=== PATIENT | male | born 1985 | race Caucasian/White ===

== ENCOUNTER 2016-08-10 13:24 | Emergency (ER) | payer BC ==
[2016-08-10 13:31] VITALS: BP 150/86; PULSE 81; RESP 18; TEMP 97.6
[2016-08-10] MEDS ORDERED: DIPH,PERTUS(ACELL)TETVAC-LF 0.5 ML VIAL IM ONE (13:51)
--- NOTE | 2016-08-10 13:55 | ED ---
Wound/Laceration HPI - General Chief Complaint: Wound/Laceration Stated Complaint: Lac/Hand Time Seen by Provider: 08/10/16 13:32 Source: patient, RN notes reviewed Mode of arrival: ambulatory Limitations: no limitations - History of Present Illness Initial Comments: 31 yo male presents to the ER with cc of right hand laceration. Patient states he cut with a piece of drywall today. Patient states he has no changes in mentation. Patient states he is now decreased range of motion. Patient states there is no pain. Patient states he is concerned because it seemed to be deeply without that he should be evaluated. Patient denies any other symptoms at this time. Patient denies any recent fever, chills, shortness of breath, chest pain, back pain, abdominal pain, nausea vomiting, numbness or tingling, dysuria or hematuria, constipation or diarrhea, headaches or visual changes, or any other current symptoms. - Related Data Allergies Allergy/AdvReac Type Severity Reaction Status Date / Time No Known Allergies Allergy Verified 08/10/16 13:29 Review of Systems ROS Statement: Those systems with pertinent positive or pertinent negative responses have been documented in the HPI. ROS Other: All systems not noted in ROS Statement are negative. Past Medical History Past Medical History: No Reported History History of Any Multi-Drug Resistant Organisms: None Reported Past Surgical History: No Surgical Hx Reported Past Psychological History: No Psychological Hx Reported Smoking Status: Never smoker Past Alcohol Use History: Occasional Past Drug Use History: None Reported General Exam - General Exam Comments Initial Comments: General: The patient is awake and alert, in no distress, and does not appear acutely ill. Neck: The neck is supple, there is no tenderness. Cardiovascular: There is a regular rate and rhythm. No murmur, rub or gallop is appreciated. Respiratory: Lungs are clear to auscultation, respirations are non-labored, breath sounds are equal. No wheezes, stridor, rales, or rhonchi. Musculoskeletal: Sensation intact with 2+ pulses of the upper extremity. Full range of motion motion of right hand. 5 out of 5 muscle strength testing throughout. 2 cm laceration to the palm of the right hand Neurological: CN II-XII intact, There are no obvious motor or sensory deficits. Coordination appears grossly intact. Speech is normal. Skin: Skin is warm and dry and no rashes or lesions are noted. Psychiatric: Normal mood and affect. Limitations: no limitations Course Vital Signs 08/10/16 13:29 Temperature 97.6 F Pulse Rate 81 Respiratory 18 Rate Blood Pressure 150/86 O2 Sat by Pulse 99 Oximetry Procedures - Procedures Initial comment: The skin was anesthetized with 1% lidocaine. The laceration was then cleansed with Betadine and irrigated with normal saline. The wound was inspected, and there was no evidence of injury to deep structures. No foreign body was noted in the wound. A total of 3 skin sutures were placed utilizing 5-0 nylon to a 2 similar laceration of the right hand. Medical Decision Making - Medical Decision Making 31-year-old male presents emergency Department chief complaint of right hand laceration. This and we did update the patient's tetanus. We did do suture care we discussed removal follow-up and all questions. They stated they understood and they are in agreement with plan. This time they will be discharged home. Patient was offered an x-ray of the hand to rule out foreign body patient states he is up with assistance today he does not want this done. Disposition Clinical Impression: Laceration of right hand Disposition: HOME SELF-CARE Condition: Stable Instructions: Laceration (ED), Care For Your Stitches (ED) Additional Instructions: Please use medication as discussed. Please follow up with family doctor if symptoms have not improved over the next two days. Please return to the emergency room if your symptoms increase or worsen or for any other concerns. `Please return to the emergency room in 8-10 days to have sutures removed. Please leave wound covered for the first 24-48 hours and then leave open to air after that time. Please use clean soap and water to clean the suture area to prevent scabbing over the top of your sutures. Please watch for any signs of infection which may include but not limited to increased pain, swelling, redness , fever or chills. Please return to the emergency room if any signs of infection do occur. Please return to the emergency room for any other concerns or complications. Referrals: Quiana Mcdonnell MD [STAFF PHYSICIAN] - 1-2 days Time of Disposition: 13:55
== END 2016-08-10 14:11 | disposition home or self-care (01) ==
LOC: EC 13:24
DX: S61.411A Laceration without foreign body of right hand, initial encounter (principal); Z23 Encounter for immunization; W45.8XXA Other foreign body or object entering through skin, initial encounter
CPT/HCPCS: 12001; 90471; 90715; 99282

== ENCOUNTER → 2021-06-19 | Outpatient (CLI) | payer BC | END | disposition home or self-care (01) | LOC: LABWHC1 11:28 | PROVIDERS: ATTEND Obstetrics & Gynecology | DX: Z31.441 Encounter for testing of male partner of patient with recurrent pregnancy loss (principal) | CPT/HCPCS: 36415 ==

== ENCOUNTER 2022-09-03 05:35 | Emergency (ER) | payer BC ==
[2022-09-03] MEDS ORDERED: SODIUM CHLORIDE 0.9% 1,000 ML IV STA (06:00)
[2022-09-03] MEDS ORDERED: KETOROLAC 15 MG/ML 1 ML VIAL IVP STA (06:00)
--- NOTE | 2022-09-03 06:05 | ED ---
Back Pain HPI - General Chief Complaint: Back Pain/Injury Stated Complaint: Pain in low right side of back Time Seen by Provider: 09/03/22 05:55 Source: patient, RN notes reviewed Limitations: no limitations - History of Present Illness Initial Comments: Patient is a 37-year-old male presenting to the emergency room with complaints of right flank pain radiating into the lower right abdomen. He reports having ongoing lower back pain for approximately 1-2 weeks with wo rsening on the right side than the left which she was attributing to muscle pain from work however during the night last night he had severe right flank pain that woke him. The pain was so severe it caused nausea and vomiting. At the peak of the pain he rated at an 8 out of 10 without intervention the pain has decreased to a 3 out of 10 with no nausea at this time. He denies any injury or trauma. He denies any weakness or radiculopathy. He denies any saddle paresthesia, bowel or bladder incontinence, other red flag symptoms for cauda equina, dysuria, hematuria, urinary frequency or hesitancy. He denies any abdominal pain not directly related to radiation from the right flank, fevers or chills. He has no significant past medical history and denies any regular medication usage or family history of nephrolithiasis. - Related Data Allergies Allergy/AdvReac Type Severity Reaction Status Date / Time No Known Allergies Allergy Verified 09/03/22 05:49 Review of Systems ROS Statement: Those systems with pertinent positive or pertinent negative responses have been documented in the HPI. ROS Other: All systems not noted in ROS Statement are negative. Past Medical History Past Medical History: No Reported History History of Any Multi-Drug Resistant Organisms: None Reported Past Surgical History: No Surgical Hx Reported Past Psychological History: No Psychological Hx Reported Smoking Status: Never smoker Past Alcohol Use History: Occasional Past Drug Use History: None Reported General Exam Limitations: no limitations General appearance: alert, in no apparent distress Head exam: Present: atraumatic, normocephalic, normal inspection Eye exam: Present: normal appearance, PERRL, EOMI. Absent: scleral icterus, conjunctival injection, periorbital swelling ENT exam: Present: normal exam, mucous membranes moist Neck exam: Present: normal inspection, full ROM Respiratory exam: Present: normal lung sounds bilaterally. Absent: respiratory distress, wheezes, rales, rhonchi, stridor Cardiovascular Exam: Present: regular rate, normal rhythm, normal heart sounds. Absent: systolic murmur, diastolic murmur, rubs, gallop, clicks GI/Abdominal exam: Present: soft, normal bowel sounds. Absent: distended, tenderness, guarding, rebound, rigid Rectal exam: Present: deferred Extremities exam: Present: normal inspection, full ROM. Absent: pedal edema, joint swelling Back exam: Present: normal inspection, full ROM. Absent: tenderness, CVA tenderness (R), CVA tenderness (L), muscle spasm, paraspinal tenderness, vertebral tenderness Neurological exam: Present: alert, oriented X3, CN II-XII intact Psychiatric exam: Present: normal affect, normal mood Skin exam: Present: warm, dry, intact, normal color. Absent: rash Course Vital Signs 09/03/22 09/03/22 05:46 07:17 Temperature 97.3 F L 98.1 F Pulse Rate 63 63 Respiratory 18 16 Rate Blood Pressure 126/84 141/92 O2 Sat by Pulse 96 100 Oximetry Medical Decision Making - Medical Decision Making Was pt. sent in by a medical professional or institution (, PA, COMMUNICATIONS WRITER, urgent care, hospital, or long-term...) When possible be specific @ -No Did you speak to anyone other than the patient for history (EMS, parent, family, police, friend...)? What history was obtained from this source @ -No Did you review nursing and triage notes (agree or disagree)? Why? @ -I reviewed and agree with nursing and triage notes Were old charts reviewed (outside hosp., previous admission, EMS record, old EKG, old radiological studies, urgent care reports/EKG's, long-term records)? Report findings @ -No old charts were reviewed Differential Diagnosis (chest pain, altered mental status, abdominal pain women, abdominal pain men, vaginal bleeding, weakness, fever, dyspnea, syncope, headache, dizziness, GI bleed, back pain, seizure, CVA, palpatations, mental health, musculoskeletal)? @ -Differential Back Pain: Strain, zoster, cauda equina syndrome, epidural abscess, vertebral osteomyelitis, discitis, fracture, subluxation, disc herniation, DJD, spinal stenosis, dissection, AAA, pancreatitis, peptic ulcer disease, pyelonephritis, kidney stone, this is not meant to be an all-inclusive list. EKG interpreted by me (3pts min.). @ -None done X-rays interpreted by me (1pt min.). @ -None done CT interpreted by me (1pt min.). @ -CT thoracic spine: Vertebral space well maintained no evidence of fracture or subluxation. Right renal calculi noted without any evidence of hydronephrosis. Her radiologist calculi measures 2 mm. U/S interpreted by me (1pt. min.). @ -None done What testing was considered but not performed or refused? (CT, X-rays, U/S, labs)? Why? @ -None What meds were considered but not given or refused? Why? @ -None Did you discuss the management of the patient with other professionals (professionals i.e. , PA, COMMUNICATIONS WRITER, lab, RT, psych nurse, transition social worker, oyster washer, teacher, chief quality officer, leather case finisher)? Give summary @ -No Was smoking cessation discussed for >3mins.? @ -No Was critical care preformed (if so, how long)? @ -No Were there social determinants of health that impacted care today? How? (Homelessness, low income, unemployed, alcoholism, drug addiction, tr ansportation, low edu. Level, literacy, decrease access to med. care, nursing home, rehab)? @ -No Was there de-escalation of care discussed even if they declined (Discuss DNR or withdrawal of care, Hospice)? DNR status @ -No What co-morbidities impacted this encounter? (DM, HTN, Smoking, COPD, CAD, Cancer, CVA, ARF, Chemo, Hep., AIDS, mental health diagnosis, sleep apnea, morbid obesity)? @ -None Was patient admitted / discharged? Hospital course, mention meds given and route, prescriptions, significant lab abnormalities, going to OR and other pertinent info. @ -37-year-old male presents to the emergency room complaints of back pain ongoing 12 weeks with change in pain characteristics localizing pain to right flank region radiating into the abdomen with associated nausea and vomiting this morning due to severe pain which has improved without intervention but persist. Will begin workup for flank pain with CBC, CMP, urinalysis along with CAT scan; will give 1 L IV fluids of normal saline along with Toradol IV push for pain and inflammation. Pain resolved with IV hydration and Toradol. CBC without abnormalities. CMP shows elevated glucose 107 no abnormal electrolytes renal and liver function normal. Computed tomography scan shows a nonobstructing 2 mm right renal calculi consistent with his flank pain. Pain resolved with Toradol no indication for further workup at this time. Education regarding kidney stones given and advised anti-inflammatory such as Motrin as needed for pain. Questions and concerns answered. Return parameters to the emergency room discussed. Will discharge home in stable condition on [id number] anti-inflammatories to treat right flank pain and monitor symptoms of nephrolithiasis advising follow-up with primary care provider. Undiagnosed new problem with uncertain prognosis? @ -No Drug Therapy requiring intensive monitoring for toxicity (Heparin, Nitro, Insulin, Cardizem)? @ -No Were any procedures done? @ -No Diagnosis/symptom? @ -Nonobstructing right renal calculi Acute, or Chronic, or Acute on Chronic? @ -Acute Uncomplicated (without systemic symptoms) or Complicated (systemic symptoms)? @ -Uncomplicated Side effects of treatment? @ -No Exacerbation, Progression, or Severe Exacerbation? @ -No Poses a threat to life or bodily function? How? (Chest pain, USA, MD, pneumonia, PE, COPD, DKA, ARF, appy, cholecystitis, CVA, Diverticulitis, Homicidal, Suicidal, threat to staff... and all critical care pts) @ -No Diagnosis/symptom? @ -Right flank Acute, or Chronic, or Acute on Chronic? @ -Acute Uncomplicated (without systemic symptoms) or Complicated (systemic symptoms)? @ -Uncomplicated Side effects of treatment? @ -none Exacerbation, Progression, or Severe Exacerbation] @ -no Poses a threat to life or bodily function? @ -no Case discussed with Dr. Gomez. - Lab Data Result diagrams: 09/03/22 06:36 09/03/22 06:36 Lab Results 09/03/22 09/03/22 Range/Units 06:36 06:36 WBC 7.5 (3.8-10.6) k/uL RBC 5.11 (4.30-5.90) m/uL Hgb 14.6 (13.0-17.5) gm/dL Hct 44.1 (39.0-53.0) % MCV 86.4 (80.0-100.0) fL MCH 28.6 (25.0-35.0) pg MCHC 33.1 (31.0-37.0) g/dL RDW 13.1 (11.5-15.5) % Plt Count 233 (150-450) k/uL MPV 9.3 Neutrophils % 67 % Lymphocytes % 23 % Monocytes % 6 % Eosinophils % 3 % Basophils % 0 % Neutrophils # 5.0 (1.3-7.7) k/uL Lymphocytes # 1.7 (1.0-4.8) k/uL Monocytes # 0.5 (0-1.0) k/uL Eosinophils # 0.2 (0-0.7) k/uL Basophils # 0.0 (0-0.2) k/uL Sodium 138 (137-145) mmol/L Potassium 4.1 (3.5-5.1) mmol/L Chloride 105 (98-107) mmol/L Carbon Dioxide 28 (22-30) mmol/L Anion Gap 5 mmol/L BUN 16 (9-20) mg/dL Creatinine 0.83 (0.66-1.25) mg/dL Est GFR (CKD-EPI)AfAm >90 (>60 ml/min/1.73 sqM) Est GFR (CKD-EPI)NonAf >90 (>60 ml/min/1.73 sqM) Glucose 107 H (74-99) mg/dL Calcium 8.8 (8.4-10.2) mg/dL Total Bilirubin 0.9 (0.2-1.3) mg/dL AST 23 (17-59) U/L ALT 25 (4-49) U/L Alkaline Phosphatase 46 (38-126) U/L Total Protein 6.5 (6.3-8.2) g/dL Albumin 3.7 (3.5-5.0) g/dL - Radiology Data Radiology results: report reviewed, image reviewed Disposition Clinical Impression: Right flank pain, Right nephrolithiasis Disposition: HOME SELF-CARE Condition: Stable Instructions (If sedation given, give patient instructions): Kidney Stones (ED) Additional Instructions: Please stay well hydrated. Avoid caffeinated products including franko. Utilize [id number]-[id number] anti-inflammatory such as ibuprofen for pain as needed. Please follow-up with your primary care provider. Please return to the Emergency Department if symptoms worsen or any other concerns. Is patient prescribed a controlled substance at d/c from ED?: No Referrals: Dalia Palma MD [Primary Care Provider] - 1-2 days Time of Disposition: 08:05
[2022-09-03 07:05] LABS: ALT 25 U/L (4-49); AST 23 U/L (17-59); African American GFR (CKD) >90 (>60 ml/min/1.73 sqM); Albumin 3.7 g/dL (3.5-5.0); Alkaline Phosphatase 46 U/L (38-126); Anion Gap 5 mmol/L; Blood Urea Nitrogen 16 mg/dL (9-20); Calcium 8.8 mg/dL (8.4-10.2); Carbon Dioxide 28 mmol/L (22-30); Chloride 105 mmol/L (98-107); Glucose 107 mg/dL (74-99); Non-African American GFR(CKD) >90 (>60 ml/min/1.73 sqM); Potassium 4.1 mmol/L (3.5-5.1); Sodium 138 mmol/L (137-145); Total Bilirubin 0.9 mg/dL (0.2-1.3); Total Protein 6.5 g/dL (6.3-8.2)
[2022-09-03 07:13] LABS: Basophils % (A) 0 %; Eosinophils # (A) 0.2 k/uL (0-0.7); Eosinophils % (A) 3 %; HCT 44.1 % (39.0-53.0); HGB 14.6 gm/dL (13.0-17.5); Lymphocytes # (A) 1.7 k/uL (1.0-4.8); Lymphocytes % (A) 23 %; MCH 28.6 pg (25.0-35.0); MCHC 33.1 g/dL (31.0-37.0); MCV 86.4 fL (80.0-100.0); Mean Platelet Volume 9.3; Monocytes # (A) 0.5 k/uL (0-1.0); Monocytes % (A) 6 %; Neutrophils % (A) 67 %; Platelet Count 233 k/uL (150-450); RBC 5.11 m/uL (4.30-5.90); RDW 13.1 % (11.5-15.5); WBC 7.5 k/uL (3.8-10.6)
[2022-09-03 07:19] VITALS: RESP 16
--- NOTE | 2022-09-03 07:50 | CT ---
EXAMINATION TYPE: CT thoracic spine wo con DATE OF EXAM: 09/03/2022 COMPARISON: None HISTORY: 37-year-old male Pain in right lower side of back TECHNIQUE: Contiguous axial scanning of the thoracic spine without IV contrast. Coronal and sagittal reconstructions performed. CT DLP: 1747.2 mGycm Automated exposure control for dose reduction was used. FINDINGS: Dependent atelectasis posterior right base. No pleural effusion. Punctate 2 mm nonobstructive right renal calculus. There is gentle levoconvex curvature of the thoracolumbar spine. Vertebral body heights are preserved and alignment is maintained. Minimal anterior disc osteophyte complex at T8-T9. By CT, no obvious large focal disc herniation or canal compromise is seen. No acute fracture identified of the thoracic spine. No significant neuroforaminal stenosis is seen on either side. IMPRESSION: 1. NO VERTEBRAL COMPRESSION COLLAPSE OR MALALIGNMENT. NO ACUTE FRACTURE SEEN OF THE THORACIC SPINE. 2. 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 3. GENTLE LEVOCONVEX CURVATURE OF THE SPINE COULD BE POSITIONAL OR SECONDARY TO A SLIGHT SCOLIOSIS. 4. PUNCTATE NONOBSTRUCTIVE 2 MM RIGHT RENAL STONE.
[2022-09-03 08:26] VITALS: BP 134/76; PULSE 64; TEMP 98.2
[2022-09-03 09:27] LABS: Mucus,Urine Many /hpf; RBC,Urine 25 /hpf (0-5); Squamous Epithelial Cell,Urine <1 /hpf (0-4); WBC,Urine 3 /hpf (0-5)
[2022-09-03 09:43] LABS: Appearance,Urine Clear (Clear); Bilirubin,Urine Negative (Negative); Color,Urine Yellow; Glucose,Urine (UA) Negative (Negative); Ketones,Urine Negative (Negative); Protein,Urine Trace (Negative); Specific Gravity,Urine >1.030 (1.001-1.035)
[2022-09-03 09:44] LABS: Blood,Urine Moderate (Negative); Leukocyte Esterase,Urine Negative (Negative); Nitrite,Urine Negative (Negative); Urobilinogen,Urine <2.0 mg/dL (<2.0)
== END 2022-09-03 08:26 | disposition home or self-care (01) ==
LOC: EC 05:35
DX: N20.0 Calculus of kidney (principal)
CPT/HCPCS: 36415; 80053; 85025; 81001; 72128; 99284; 96374; 96361; J1885

== ENCOUNTER → 2024-06-26 | Outpatient (CLI) | payer BC ==
--- NOTE | 2024-06-26 16:42 | CT ---
EXAMINATION TYPE: CT wrist RT wo con DATE OF EXAM: 06/26/2024 COMPARISON: None. CLINICAL INDICATION: Male, 39 years old with history of S62.154A NONDISP FX OF HOOK PROCESS OF HAMATE BONE; [facility], Pain in right wrist after golfing. CT DLP: 119.9 mGycm Automated exposure control for dose reduction was used. FINDINGS: There is age indeterminate minimally displaced linear fracture through the palmar aspect of the hama te bone seen best sagittal image 23 and axial image 50. Remainder carpal bones are intact. Carpal row joint spaces are preserved. Distal radius and ulna are intact. No suspicious soft tissue swelling is seen. IMPRESSION: As above. [facility], , 06/26/2024 4:39 PM
== END | disposition home or self-care (01) ==
LOC: RADCTMAIN 15:06
PROVIDERS: ATTEND Orthopaedic Surgery
DX: S62.154A Nondisplaced fracture of hook process of hamate [unciform] bone, right wrist, initial encounter for closed fracture (principal)